=== PATIENT | male | born 1970 | race Caucasian/White ===

== ENCOUNTER 2024-06-30 19:34 | Emergency (ER) | payer BC, SELFPAY ==
--- OUTSIDE RECORDS SUMMARY | 2024-06-30 19:40 | XMS_ITS | Encounter Summary ---
Author Organization [facility] Address [address] [facility] [place] [address] Phone Care Team Providers Care Dean Of Graduate Studies Name Role Phone Sam Claire MD Primary Care Provider [phone] Joel Liu MD Unavailable Reason for Visit * Reason Comments Medication Refill Encounter Details Date Type Department Care Team (Late st Contact Info) Description 09/18/2023 Refill [facility] Medical Group - Family [facility] #2 [place] [address] Sam Claire MD [address] [address] Medication Refill Social History Tobacco Use Types Packs/Day Years Used Date Smoking Tobacco: Former Cigarettes Q uit: 10/22/2012 Smokeless Tobacco: Never Alcohol Use Standard Drinks/Week Comments No 0 (1 standard drink = 0.6 oz pur e alcohol) PHQ-2 Answer Date Recorded Total Score - Questions 1-9 0 03/24 Sexually Active Control Partners Comments Yes Natural Family Planning Female Sex and Gender Information Value Date Recorded Sex Assigned at Male 07/12/2023 2:05 PM CDT Legal Sex Male 8:46 PM CDT Gender Identity Male 07/12/2023 2:05 PM CDT Sexual Orientation Straight 07/12/2023 2: 05 PM CDT 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 Requested Prescriptions Pending Prescriptions Disp Refills atorvastatin (LIPITOR) 20 MG Tablet [Pharmacy Med Name: ATORVASTATIN 20 MG TABLET] 90 Tablet 1 Sig: TAKE 1 TABLET BY MOUTH EVERY DAY Hmg CoA Reductase Inhibitors Protocol Failed - 09/18/2023 12:03 AM Failed - Lipid panel in past 12 months LDL Date Value Ref Range Status 07/13/2022 74 5 - 130 mg/dL Final HDL CHOLESTEROL Date Value Ref Range Status 07/13/2022 28.3 (L) >40 mg/dL Final CHOLESTEROL Date Value Ref Range Status 07/13/2022 123 <=200 mg/dL Final TRIGLYCERIDES Date Value Ref Range Status 07/13/2022 104 <150 mg/dL Final VLDL Date Value Ref Range Status 07/13/2022 21 5 - 55 mg/dL Final CHOL/HDL RATIO Date Value Ref Range Status 07/13/2022 4.3 0.0 - 4.4 Final NON-HDL CHOLESTEROL Date Value Ref Range Status 07/13/2022 94.7 <130 mg/dL Final Failed - CMP in past 12 months SODIUM Date Value Ref Range Status 07/13/2022 139 136 - 144 mmol/L Final POTASSIUM Date Value Ref Range Status 07/13/2022 4.1 3.5 - 5.1 mmol/L Final CHLORIDE Date Value Ref Range Status 07/13/2022 101 100 - 110 mmol/L Final CO2, VENOUS Date Value Ref Range Status 07/13/2022 25 22 - 32 mmol/L Final ANION GAP Date Value Ref Range Status 07/13/2022 17.1 8.0 - 20.0 mmol/L Final GLUCOSE Date Value Ref Range Status 07/13/2022 86 70 - 99 mg/dL Final BUN Date Value Ref Range Status 07/13/2022 22 (H) 6 - 20 mg/dL Final CREATININE, BLOOD Date Value Ref Range Status 07/13/2022 1.09 0.80 - 1.30 mg/dL Final BUN/CREATININE RATIO Date Value Ref Range Status 07/13/2022 20 12 - 20 ratio Final TOTAL PROTEIN Date Value Ref Range Status 07/13/2022 7.6 6.0 - 8.3 g/dL Final ALBUMIN Date Value Ref Range Status 07/13/2022 4.5 3.5 - 5.2 g/dL Final Comment: The colormetric methods used for the determination of Albumin may lead to falsely elevated test results in patients suffering from renal failure or insufficiency due to interference with other proteins. A/G RATIO Date Value Ref Range Status 07/13/2022 1.5 1.0 - 2.0 Final CALCIUM Date Value Ref Range Status 07/13/2022 9.6 8.9 - 10.3 mg/dL Final T BILI Date Value Ref Range Status 07/13/2022 0.3 <=1.2 mg/dL Final SGOT (AST) Date Value Ref Range Status 07/13/2022 20 <=40 U/L Final SGPT (ALT) Date Value Ref Range Status 07/13/2022 28 <=41 U/L Final ALKALINE PHOSPHATASE Date Value Ref Range Status 07/13/2022 98 40 - 130 U/L Final GFR, EST. NONAFRICAN Date Value Ref Range Status 07/13/2022 >60 >=60 Final GFR, EST. Date Value Ref Range Status 07/13/2022 >60 >=60 Final GFR, ESTIMATED Date Value Ref Range Status 07/13/2022 >60 >=60 Final Comment: Creatinine Clearance is the preferred criteria for selecting drug dose adjustments in renally impaired patients. The GFR is provided as additional pertinent clinical information. GFR is reported in mL/min/1.73 sq m. Calculation based on the Chronic Kidney Disease Epidemiology Collaboration (CKD- EPI) equation refitwithout adjustment for race. IS THE PATIENT REQUIRED TO BE FASTING? Date Value Ref Range Status 07/13/2022 No Final Passed - Visit with relevant provider in past 12 months or upcoming 90 days Recent Visits No visits were found meeting these conditions. Showing recent visits within past 365 days and meeting all other requirements Future Appointments Date Type Provider Dept 09/25/23 Appointment Sam Claire MD [facility] Show[facility] future appointments within next 90 days and meeting all other requirements lisinopril-hydroCHLOROthiazide (PRINZIDE, ZESTORETIC) 20-25 MG Tablet [Pharmacy Med Name: LISINOPRIL-HCTZ 20-25 MG TAB] 90 Tablet 1 Sig: TAKE 1 TABLET BY MOUTH EVERY DAY Angel Inhibitors and Diuretics Combo Protocol Failed - 09/18/2023 12:03 AM Failed - Serum potassium on record in past 12 months POTASSIUM Date Value Ref Range Status 07/13/2022 4.1 3.5 - 5.1 mmol/L Final Failed - Serum sodium on record in past 12 months SODIUM Date Value Ref Range Status 07/13/2022 139 136 - 144 mmol/L Final Failed - GFR on record in past 12 months GFR, EST. NONAFRICAN Date Value Ref Range Status 07/13/2022 >60 >=60 Final Passed - Blood pressure on record in past 12 months Clinician-entered: BP Readings from Last 3 Encounters: 06/29/23 124/81 07/13/22 118/74 04/12/21 114/74 Patient-entered: No data recorded Passed - Visit with relevant provider in past 12 months or upcoming 90 days Recent Visits No visits were found meeting these conditions. Showing recent visits within past 365 days and meeting all other requirements Future Appointments Date Type Provider Dept 09/25/23 Appointment Sam Claire MD [facility] Showing future appointments within next 90 days and meeting all other requirements documented in this encounter Plan of Treatment Upcoming Encounters Date Type Department Care Team (Late st Contact Info) Description 09/30/2024 6:15 PM CDT Office Visit [facility] - [facility] [place] [address] [place] [address] Sam Claire MD [address] [address] documented as of this encounter Visit Diagnoses Not on filedocumented in this encounter Additional Health Concerns Assessment Noted Time PHQ-9 Depression Total Score: 0 05/29/19 20 11:03 AM MANAGER CASH documented as of this encounter Care Teams Dean Of Graduate Studies Relationship Specialty Start Date End Date Sam Claire MD [address] [place] [address] PCP - General Family Medicine 04/17/19 Joel Liu MD [address] [facility] [address] [place] [address] Consulting Physician Colon and Rectal Surgery 10/09/23 documented as of this encounter
--- OUTSIDE RECORDS SUMMARY | 2024-06-30 19:40 | XMS_ITS | Encounter Summary ---
Author Organization [facility] Address [address] [facility] 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 Requested Prescriptions Pending Prescriptions Disp Refills levothyroxine (SYNTHROID) 200 MCG Tablet [Pharmacy Med Name: LEVOTHYROXINE 200 MCG TABLET] 90 Tablet 0 Sig: TAKE 1 TABLET BY MOUTH EVERY DAY Thyroid Hormones Protocol Failed - 08/26/2023 8:01 AM Failed - Normal TSH in past 12 months TSH Date Value Ref Range Status 07/13/2022 0.553 0.270 - 4.200 mIU/L Final Passed - Visit with relevant provider in past 12 months or upcoming 90 days Recent Visits No visits were found meeting these conditions. Showing recent visits within past 365 days and meeting all other requirements Future Appointments Date Type Provider Dept 09/25/23 Appointment Sam Claire MD [facility] Showing future appointments within next 90 days and meeting all other requirements documented in this encounter Plan of Treatment Upcoming Encounters Date Type Department Care Team (Late st Contact Info) Description 09/30/2024 6:15 PM CDT Office Visit [facility] - Family Medicine [facility] [address]2 [place] [address] Sam Claire MD [address] [address] documented as of this encounter Visit Diagnoses Not on filedocumented in this encounter Additional Health Concerns Assessment Noted Time PHQ-9 Depression Total Score: 0 05/29/19 20 11:03 AM REAL ESTATE AGENCY PRINCIPAL documented as of this encounter Care Teams Occupational Hygienist Relationship Specialty Start Date End Date Sam Claire MD #[address] [address] PCP - General Family Medicine 04/17/19 Joel Liu MD #2 [place] [address] Consulting Physician Colon and Rectal Surgery 10/09/23 documented as of this encounter
--- OUTSIDE RECORDS SUMMARY | 2024-06-30 19:40 | XMS_ITS | Clinical Summary ---
Author Organization [facility] Address [address] [facility] [place] [place] [address] Phone Care Team Providers Care Engineering And Scientific Programmer Name Role Phone Sam Claire MD Primary Care Provider [phone] Joel Liu MD Unavailable Allergies No known active allergies Medications levothyroxine (SYNTHROID) 200 MCG Tablet TAKE 1 TABLET BY MOUTH EVERY DAY 90 Tablet 1 4 Active lisinopril-hydr oCHLOROthiazide (PRINZIDE, ZESTORETIC) 20-25 MG Tablet TAKE 1 TABLET BY MOUTH EVERY DAY 90 Tablet 1 4 Active atorvastatin (LIPITOR) 20 MG Tablet TAKE 1 TABLET BY MOUTH EVERY DAY 90 Tablet 1 4 Active allopurinol (ZYLOPRIM) 100 MG Tablet TAKE 1 TABLET BY MOUTH EVERY DAY 90 Tablet 1 5 Active allopurinol (ZYLOPRIM) 100 MG Tablet TAKE 1 TABLET BY MOUTH EVERY DAY 90 Tablet 3 4 06/17/19 25 Discontinued Active Problems Problem Noted Date Diagnosed Date Pure hypercholesterolemia 09/20/2017 Physical exam, annual (Adult) 09/20/2017 Skin lesion of foot 09/20/2017 Gout involving toe 07/26/2017 Abnormal blood level of uric acid 07/26/2017 Benign essential HTN 07/26/2017 Hypothyroidism due to acquired atrophy of thyroi d 07/26/2017 Encounters Date Type Department Care Team Description 06/17/2024 Refill [facility] - Family [facility] #2 [place] [address] Sam Claire MD Medication Refill from Last 3 Months Immunizations Immunization Administration Dates Next Due Influenza Vaccine, Quadrivalent, PF 05/29/2019 TDAP Vaccine 09/25/2023 Family History Medical History Relation Name Comments Hypertension Brother 1 lissy No Known Problems Brother 2 carol Cancer Father Diabetes Father Hypertension Father Lung Cancer Father Cancer Maternal Grandfather Cancer Maternal Grandmother Breast Cancer Mother Cancer Mother Cancer Paternal Aunt No Known Problems Paternal Grandfather No Known Problems Paternal Grandmother Cancer Paternal Uncle No Known Problems Son 1 No Known Problems Son 2 No Known Problems Son 3 Relation Name Status Comments Brother 1 lissy Alive Brother 2 carol Alive Father Maternal Grandfather Maternal Grandmother Mother Alive Paternal Aunt Paternal Grandfather Paternal Grandmother Paternal Uncle Son 1 Alive Son 2 Alive Son 3 Alive Social History Tobacco Use Types Packs/Day Years Used Date Smoking Tobacco: Former Cigarettes 1.5 28 S tarted: 1985 Smokeless Tobacco: Never Tobacco Cessation:Counseling Given: No Alcohol Use Standard Drinks/Week Comments No 0 (1 standard drink = 0.6 oz pur e alcohol) PHQ-2 Answer Date Recorded Total Score - Questions 1-9 0 07/2023 Sexually Active Control Partners Comments Yes Natural Family Planning Female Sex and Gender Information Value Date Recorded Sex Assigned at Male 07/12/2023 2:05 PM CDT Legal Sex Male 8:46 PM CDT Gender Identity Male 07/12/2023 2:05 PM CDT Sexual Orientation Straight 07/12/2023 2: 05 PM CDT 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 Not on file Not on file Last Filed Vital Signs Vital Sign Reading Time Taken Comments Blood Pressure 150/110 10/10/2023 1:46 PM CDT Pulse 86 10/10/2023 1:46 PM CDT Temperature 35.7 C (96.2 F) 10/10/2023 1:46 PM CDT Respiratory Rate 20 10/10/2023 1:46 PM CDT Oxygen Saturation 97% 10/10/2023 1:46 PM CDT Inhaled Oxygen Concentration - - Weight 118.8 kg (262 lb) 10/10/2023 1:46 PM CDT Height 175.3 cm (5' 9 ) 10/10/2023 1:46 PM CDT Body Mass Index 38.69 10/10/2023 1:46 PM CDT Plan of Treatment Upcoming Encounters Date Type Department Care Team (Late st Contact Info) Description 09/30/2024 6:15 PM CDT Office Visit [facility] [address] [place] [address] Sam Claire MD [address] [address] Health Maintenance Due Date Last Done Comments Hepatitis C Virus (HCV) Screening 1970 Hepatitis B Immunization (1 of 3 - 19+ 3-dose series) 09/07/1990 Cologuard 09/07/2021 Immunochemical Fecal Occult Blood 09/07/2021 Lung Cancer Screening 09/07/2021 Pneumococcal Immunization (5 0+ years) (1 of 1 - PCV) 09/07/2021 Zoster Immunization (1 of 2) 09/07/2021 Influenza Immunization (#1) 2023 05/29/2019 SARS-COV-2 Immunization (1 - 2023- season) 2023 Colonoscopy 06/28/2033 06/29/2023 Colorectal Cancer Screening 06/28/2033 Td Immunization Every 10 Yea rs (Adults With 1 Tdap) 09/24/2033 09/25/2023 Respiratory Syncytial Virus (RSV) Immunization (Adult) (1 - 1-dose 75+ series) 09/07/2046 06/29/2023 DTaP/Tdap/Td Immunization Discontinued 09/25/2023 TdaP Immunization Discontinued 09/25/2023 Meningococcal Immunization (ACWY) Aged Out No longer eligible based on patient's age to complete this topic Rotavirus Immunization Aged Out No lo nger eligible based on patient's age to complete this topic Insurance [facility] Care Teams Engineering And Scientific Programmer Relationship Specialty Start Date End Date Sam Claire MD [address] [facility] [address] [place] [address] PCP - General Family Medicine 04/17/19 Joel Liu MD [address] [facility] [address] [place] [address] Consulting Physician Colon and Rectal Surgery 10/09/23
--- OUTSIDE RECORDS SUMMARY | 2024-06-30 19:40 | XMS_ITS | Encounter Summary ---
Author Organization [facility] Address [address] [facility] 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 Requested Prescriptions Pending Prescriptions Disp Refills allopurinol (ZYLOPRIM) 100 MG Tablet [Pharmacy Med Name: ALLOPURINOL 100 MG TABLET] 90 Tablet 3 Sig: TAKE 1 TABLET BY MOUTH EVERY DAY Gout Agents Protocol Failed - 09/06/2023 1:26 PM Failed - Uric acid on record in past 12 months URIC ACID Date Value Ref Range Status 07/13/2022 10.0 (H) 3.4 - 7.0 mg/dL Final Failed - Serum creatinine on record in past 12 months CREATININE, BLOOD Date Value Ref Range Status 07/13/2022 1.09 0.80 - 1.30 mg/dL Final Passed - Visit with relevant provider in past 12 months or upcoming 90 days Recent Visits No visits were found meeting these conditions. Showing recent visits within past 365 days and meeting all other requirements Future Appointments Date Type Provider Dept 09/25/23 Appointment Sam Claire MD [facility] Showing future appointments within next 90 days and meeting all other requirements documented in this encounter Plan of Treatment Upcoming Encounters Date Type Department Care Team (Late st Contact Info) Description 09/30/2024 6:15 PM CDT Office Visit [facility] - [facility] - [place] [address] [place] [address] Sam Claire MD [address] [address] documented as of this encounter Visit Diagnoses Not on filedocumented in this encounter Additional Health Concerns Assessment Noted Time PHQ-9 Depression Total Score: 0 05/29/19 20 11:03 AM GLUE DRIER OPERATOR documented as of this encounter Care Teams Entry Level Buyer Relationship Specialty Start Date End Date Sam Claire MD [address] [facility] [address] [place] [address] PCP - General Family Medicine 04/17/19 Joel Liu MD [address] [facility] [address] [place] [address] Consulting Physician Colon and Rectal Surgery 10/09/23 documented as of this encounter
--- OUTSIDE RECORDS SUMMARY | 2024-06-30 19:40 | XMS_ITS | Encounter Summary ---
Author Organization [facility] Address [address] [facility] 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 Not on file documented as of this encounter Miscellaneous Notes * Telephone Encounter - Bernice Whittaker, RN - 07/23/2023 2:06 PM CDT No serum creatinine in 12 months, no uric acid, no appointment in last 12 months documented in this encounter Plan of Treatment Upcoming Encounters Date Type Department Care Team (Late st Contact Info) Description 09/30/2024 6:15 PM CDT Office Visit [facility] - Family Medicine - [place] #2 [place] [address] Sam Claire MD #[address] [address] documented as of this encounter Visit Diagnoses Not on filedocumented in this encounter Additional Health Concerns Assessment Noted Time PHQ-9 Depression Total Score: 0 05/29/19 20 11:03 AM RETIREMENT VILLAGE MANAGER documented as of this encounter Care Teams Technical Aid Relationship Specialty Start Date End Date Sam Claire MD #[address] [address] PCP - General Family Medicine 04/17/19 Joel Liu MD #[address] [address] Consulting Physician Colon and Rectal Surgery 10/09/23 documented as of this encounter
--- OUTSIDE RECORDS SUMMARY | 2024-06-30 19:41 | XMS_ITS | Encounter Summary ---
Author Organization [facility] Address [address] 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 Refills: 0 Received from: Pharmacy ER ENGINEER documented in this encounter Plan of Treatment Upcoming Encounters Date Type Department Care Team (Late st Contact Info) Description 09/30/2024 6:15 PM CDT Office Visit [facility] #2 [place] [address] Sam Claire MD #2 [facility] [address] [place] [address] documented as of this encounter Visit Diagnoses Not on filedocumented in this encounter Additional Health Concerns Assessment Noted Time PHQ-9 Depression Total Score: 0 05/29/19 20 11:03 AM WASHER ENGINEER documented as of this encounter Care Teams Picker/Puller Relationship Specialty Start Date End Date Sam Claire MD #2 [facility] [address] [place] [address] PCP - General Family Medicine 04/17/19 Joel Liu MD #2 [facility] [address] [place] [address] Consulting Physician Colon and Rectal Surgery 10/09/23 documented as of this encounter
--- OUTSIDE RECORDS SUMMARY | 2024-06-30 19:41 | XMS_ITS | Encounter Summary ---
Author Organization [facility] Address [address] [facility] 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 documented in this encounter Plan of Treatment Upcoming Encounters Date Type Department Care Team (Late st Contact Info) Description 09/30/2024 6:15 PM CDT Office Visit [facility] - Family Medicine - [place] #2 [place] [address] Sam Claire MD #2 [facility] [address] [place] [address] documented as of this encounter Visit Diagnoses Not on filedocumented in this encounter Additional Health Concerns Assessment Noted Time PHQ-9 Depression Total Score: 0 05/29/19 20 11:03 AM FLORAL CLERK documented as of this encounter Care Teams Hide Puller Relationship Specialty Start Date End Date Sam Claire MD #[address] [address] PCP - General Family Medicine 04/17/19 Joel Liu MD #[address] [address] Consulting Physician Colon and Rectal Surgery 10/09/23 documented as of this encounter
--- OUTSIDE RECORDS SUMMARY | 2024-06-30 19:41 | XMS_ITS | Encounter Summary ---
Author Organization [facility] Address [address] [facility] [place] [address] Phone Care Team Providers Care Certified Professional Controller Name Role Phone Sam Claire MD Primary Care Provider Joel Liu MD Unavailable Reason for Visit * Reason Comments Medication Refill Encounter Details Date Type Department Care Team (Late st Contact Info) Description 05/07/2022 Refill [facility] - Family 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 Patient states he will call when he gets his new insurance. He states he will be out of his medication in a week. LIFT CUTTER * Telephone Encounter - Mayela Simmons RN - 05/08/2022 1:29 PM CST Needs OV with PCP LIFT CUTTER * Telephone Encounter - Mayela Simmons RN - 05/08/2022 1:28 PM CST Images from the original note were not included. April 25, 2022 ?? 10:53 AM Note Refused by Dr Claire ?? Refused 1 week ago (04/14/2022): Patient needs appointment levothyroxine (SYNTHROID) 200 MCG Tablet Sig: TAKE 1 TABLET BY MOUTH EVERY DAY Disp: 30 Tablet ? Refills: 0 Received from: Pharmacy LIFT CUTTER documented in this encounter Plan of Treatment Upcoming Encounters Date Type Department Care Team (Late st Contact Info) Description 09/30/2024 6:15 PM CDT Office Visit [facility] - Family Medicine [facility] [address] [place] [address] Sam Claire MD [address] [address] documented as of this encounter Visit Diagnoses Not on filedocumented in this encounter Additional Health Concerns Assessment Noted Time PHQ-9 Depression Total Score: 0 05/29/19 20 11:03 AM TOP LIFT CUTTER documented as of this encounter Care Teams Certified Professional Controller Relationship Specialty Start Date End Date Sam Claire MD [address] [facility] [address] [place] [address] PCP - General Family Medicine 04/17/19 Joel Liu MD [address] [facility] [address] [place] [address] Consulting Physician Colon and Rectal Surgery 10/09/23 documented as of this encounter
--- OUTSIDE RECORDS SUMMARY | 2024-06-30 19:41 | XMS_ITS | Continuity of Care Document ---
Author Organization [facility] Address [address] [place] [address] Phone Care Team Providers Care Rn Transport Name Role Phone Unavailable Unavailable Unavailable Procedures Procedure Date Special Narrative Report Office/outpatient visit,est, mod 2008 Supplemental Report Office/outpatient visit,est, mod 2008 Supplemental Report Work/medical disability examination [facility] X-ray exam of knee, 1 or2 views 009 X-ray exam of both knees, standing I M E No Show Appointment Advance Directives Directive Yes / No Effective Date File Name No Information Encounters Encounter Description Practice Location Reason(s) For Visit Diagnoses Date Provider Providers Copied on Encounter [facility], [address] [facility] [address], [place], [place], [id number], [place] tel:[phone] No Information 9 No Information Office/outpat ient visit,est, [facility], [address] [place], [place], [id number], [place] tel:[phone] No Information 9 No Information Office/outpat ient visit,est, [facility], [address] [facility] [address], [place], [place], [id number], [place] tel:[phone] No Information 9 No Information Work/medical disability examination [facility], [address] [facility] [address], [place], [place], [id number], [place] tel:[phone] No Information No Information [facility], [address] [facility] [address], [place], [place], [id number], [place] tel:[phone] [facility] No Information 9 No Information Family History Family Member Type Diagnosis Age At Onset No Information Payers Payer name Insurance type Covered republican ID Authoriza tion(s) No Information Social History Type Description Quantity Date Captured Comments Sex Male Smoking Status No Information Chief Complaint And Reason For Visit No Information Reason For Referral Reason For Referral No Information History Of Present Illness Encounter Date Complaint History Of Prese nt Illness No Information Functional Status Date Functional Assessmen t No Information Instructions Date Instruction Additional Infor mation No Information Assessments Type Assessment Date No Information Patient Care Teams Name Effective Dates (start - stop) Status Members No Information
--- OUTSIDE RECORDS SUMMARY | 2024-06-30 19:41 | XMS_ITS | Encounter Summary ---
Author Organization [facility] Address [address] 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 M BOX TENDER * Telephone Encounter - Cayla Hazel - 04/14/2022 10:52 AM CST Message was sent to patient via [employer]. M BOX TENDER * Telephone Encounter - Mayela Simmons RN - 04/14/2022 10:31 AM CST Needs OV with PCP M BOX TENDER * Telephone Encounter - Mayela Simmons RN - 04/14/2022 10:31 AM CST Medication failed the protocol, provider to review and approve the medication order if appropriate. Requested Prescriptions Pending Prescriptions Disp Refills levothyroxine (SYNTHROID) 200 MCG Tablet [Pharmacy Med Name: LEVOTHYROXINE 200 MCG TABLET] 30 Tablet 0 Sig: TAKE 1 TABLET BY MOUTH EVERY DAY Thyroid Hormones Protocol Failed - 04/13/2022 5:06 PM Failed - Visit with relevant provider in past 12 months or upcoming 90 days Recent Visits No visits were found meeting these conditions. Showing recent visits within past 365 days and meeting all other requirements Future Appointments No visits were found meeting these conditions. Showing future appointments within next 90 days and meeting all other requirements Failed - Normal TSH in past 12 months TSH Date Value Ref Range Status 04/12/2021 7.890 (H) 0.270 - 4.200 mIU/L Final M BOX TENDER documented in this encounter Plan of Treatment Upcoming Encounters Date Type Department Care Team (Late st Contact Info) Description 09/30/2024 6:15 PM CDT Office Visit [facility] - Family [facility] [address] [place] [address] Sam Claire MD [address] [facility] [address] [place] [address] documented as of this encounter Visit Diagnoses Not on filedocumented in this encounter Additional Health Concerns Assessment Noted Time PHQ-9 Depression Total Score: 0 05/29/19 20 11:03 AM STEAM BOX TENDER documented as of this encounter Care Teams Customs Appraiser Relationship Specialty Start Date End Date Sam Claire MD [address] [address] PCP - General Family Medicine 04/17/19 Joel Liu MD [address] [address] Consulting Physician Colon and Rectal Surgery 10/09/23 documented as of this encounter
[2024-06-30 19:45] VITALS: BP 154/87; PULSE 84; RESP 20; TEMP 36.8; O2SAT 98
--- NOTE | 2024-06-30 20:48 | ED_ITS ---
HPI - Extremity Injury (Upper) General Chief Complaint: Extremity Injury, Upper Stated Complaint: red line along right arm/tender Time Seen by Provider: 06/30/24 20:48 Source: patient, RN notes reviewed and old records reviewed Mode of arrival: ambulatory Limitations: no limitations History of Present Illness HPI narrative: 53 year old male presents to [facility] care with complaints of some right inner forearm pain starting last week on Sunday and today noted some pain in his right upper arm and at the antecubital area a pulling sensation.. He states that today he noted some red streaking and bruising up his arm. 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 No open skin areas noted on his right arm no warmth noted to arm. MD complaint: injury to: right and arm (reports no known specific injury) Onset (ago): day(s) (initial pain to right inner forearm past Sunday ) Handedness: right Severity scale (1-10): 3 Treatments prior to arrival: other (none) Related Data Home Medications ?Medication ?Instructions ?Recorded ?Confirmed ?Last Taken ?Type allopurinol 100 mg tablet mg 06/30/24 Unknown History atorvastatin 20 mg tablet mg 06/30/24 Unknown History lisinopril 20 tablet 06/30/24 Unknown History mg-hydrochlorothiazide 25 mg tablet Allergies Allergy/AdvReac Type Severity Reaction Status Date / Time No Known Allergies Allergy Verified 06/30/24 19:58 Review of Systems Review of Systems: CONSTITUTIONAL: Denies fever, chills, or sweats. EYES: Denies visual changes, redness, or discharge. ENT: Denies rhinorrhea, congestion, sore throat, or otalgia. CARDIOVASCULAR: Denies chest pain, palpitations, or edema. RESPIRATORY: Denies cough or dyspnea. GASTROINTESTINAL: Denies abdominal pain, nausea, vomiting, or diarrhea. GENITOURINARY: Denies dysuria or hematuria. SKIN: Denies rash or itching. some red streaks noted up arm and some bruising MUSCULOSKELETAL: Denies fede k pain,reports some pain to inner forearm and some discomfort right upper arm and pulling sensation in antecubital area, or myalgia. NEUROLOGIC: Denies headache, numbness, or weakness. PSYCHIATRIC: Denies anxiety or depression. All systems reviewed & are unremarkable except as noted in HPI and below [facility] Past Medical History Medical History (Updated 07/02/24 @ 21:53 by Sondra Woods NP) Hyperlipidemia Hypertension Gout Social History Social History (Updated 07/02/24 @ 21:53 by Sondra Woods NP) Smoking status: Never smoker Alcohol intake: unknown Substance use: unknown Living arrangements: with family Gender identity (if verbalized by the patient): Male Comments At time of signature, agree with nursing past medical, surgical, social and family history. There is no relevant family history pertinent to the presenting complaint Exam Narrative: GENERAL: Well-appearing, well-nourished, and in no acute distress. HEAD: Normocephalic, atraumatic. EYES: PERRLA and EOMI. ENT: Nares clear, no rhinorrhea or epistaxis. Mucous membranes moist.TM's normal throat pink with no swelling NECK: Supple. no lymphadenopathy CHEST: Clear to auscultation. No respiratory distress. SAO2 98% on room air HEART: Regular rate and rhythm. No murmur heard. Normal peripheral pulses. ABDOMEN: Soft, nontender, nondistended, normal active bowel sounds. EXTREMITIES: Normal range of motion. No edema. tenderness to right inner forearm and pulling tight sensation at antecubital and up inner upper arm with some bruising and red streaks up arm, no warmth to tissue, no open wounds noted or any weeping of tissue. Pulses of good quality right arm, denies any tingling or numbness, movement intact SKIN: Warm, dry, no rash. up NEURO: No focal deficits. Alert and oriented x3. Course Course Emergency Course: Patient is aware of diagnosis, understands and agrees to treatment plan.? Anticipatory guidance given.? Patient agrees to follow-up as directed and is aware of reasons to seek care at the emergency department. Portions of this record may have been created with voice recognition software Level of Care: Express Care Visit Vital Signs Vital signs: Vital Signs Temperature 36.8 C 06/30/24 19:45 Pulse Rate 84 06/30/24 19:45 Respiratory Rate 20 06/30/24 19:45 Blood Pressure 154/87 H 06/30/24 19:45 Pulse Oximetry 98 06/30/24 19:45 Oxygen Delivery Room Air 06/30/24 19:45 Temperature 36.8 C 06/30/24 19:45 Pulse Rate 84 06/30/24 19:45 Respiratory Rate 20 06/30/24 19:45 Blood Pressure 154/87 H 06/30/24 19:45 Pulse Oximetry 98 06/30/24 19:45 Oxygen Delivery Room Air 06/30/24 19:45 Reviewed MDM - Extremity Injury (Upper) Differential Diagnosis Differential diagnosis: Likely other (contusion of arm, muscle strain, cellulitis right arm) Medical Records Attestation: I reviewed the patient's medical records. Critical Care Time Critical Care Time Critical Care Time: No Discharge Plan Discharge Clinical Impression: Cellulitis of arm, right Patient Disposition: Home, Self-Care Condition: Stable Instructions: Antibiotic Form, Cellulitis (ED) Additional Instructions: cool packs to right forearm 20 minutes 3 times daily watch for any increasing infection--redness, swelling, drainage Tylenol or ibuprofen for any fever pain follow up with PCP in 2-3 days for a wound check recheck if develop fever, chills, increasing symptom Go to the ER if your symptoms become worse of if ANY new symptoms develop Follow-up with Dr. Claire in 2-3 days or sooner if no improvement Antibiotics as prescribed complete all doses take with food If any increased pain swelling or redness go directly to the emergency room If your symptoms persist, change or worsen significantly before you can contact your personal physician then please, without delay, go to the emergency department for further evaluation. Follow-up with PCP in 7-10 days or sooner if needed Follow up with PCP soon in regards to your blood pressure which is elevated above threshold for referral. Blood pressure above 120/80 may indicate pre- hypertension.154/87 Patient Language: Serbian Prescriptions: New clindamycin HCl 300 mg capsule 300 mg PO Q8H Qty: 30 0RF Rx Instructions: take with food No Action atorvastatin 20 mg tablet allopurinol 100 mg tablet lisinopril-hydrochlorothiazide 20-25 mg tablet Follow-up/Referrals: Dakotah,Sam Gomez MD [Primary Care Provider] - Time of Disposition: 21:01 Quality [place] Coma Scale Eyes: Open Verbal: Oriented and Alert Motor: Follows Commands Aaliyah Coma Total Score: 15
== END 2024-06-30 21:05 | disposition home or self-care (01) ==
PROVIDERS: Emergency Provider Registered Nurse; PCP Internal Medicine
DX: L03.113 Cellulitis of right upper limb (principal)
CPT/HCPCS: 99203; G0463